=== PATIENT | female | born 1950 | race African-American/Black ===

== ENCOUNTER 2016-10-21 17:32 | Emergency (ER) | payer MEDICARE, OTHER ==
[2016-10-21] MEDS ORDERED: OPTIRAY 350 100 ML VIAL HMH IV ONE (17:33)
[2016-10-21] MEDS ORDERED: DUONEB INH ONE (18:42)
[2016-10-21] MEDS ORDERED: CEFTRIAXONE 1 GM VIAL ONE (20:15)
[2016-10-21] MEDS ORDERED: SODIUM CHLORIDE 0.9% 100 ML IV ONE (20:15)
== END 2016-10-21 21:55 | disposition home or self-care (01) ==
LOC: ER 17:32
DX: R06.00 Dyspnea, unspecified (principal); N30.00 Acute cystitis without hematuria; Z79.82 Long term (current) use of aspirin; Z79.899 Other long term (current) drug therapy
CPT/HCPCS: 36415; 71020; 71260; 80053; 81001; 82553; 83880; 84484; 85025; 85379; 87077; 87088; 87186; 93005; 93971; 94640; 96365; 99285; J0696; Q9967